=== PATIENT | male | born 1955 | race Caucasian/White ===

== ENCOUNTER 2019-03-04 13:23 | Inpatient (IN) | payer OTHER ==
[~2019-03-04] VITALS: Ht 177.8 cm; Wt 116.2 kg
[~2019-03-04 13:23] MED LIST: ALBIPROI INH; AZIT250 PO; CHLO25 PO; HYDACE5 PO; PENVK500 PO; PRED20 PO; RXLORA1 PO
[2019-03-04] MEDS ORDERED: GABA300 PO (13:43)
[2019-03-04] MEDS ORDERED: LEVSOD100 PT (13:43)
[2019-03-04] MEDS ORDERED: ESCI10 PO (13:43)
[2019-03-04] MEDS ORDERED: ALBU90OI61 INH (13:43)
[2019-03-04] MEDS ORDERED: METO25 PT (13:44)
[2019-03-04] MEDS ORDERED: LOSA50 PT (13:44)
[2019-03-04] MEDS ORDERED: Zocor20 MG PO (13:45)
[2019-03-04] MEDS ORDERED: STIOLTO RESPIMAT4 GM INH (13:45)
[2019-03-04 13:52] LABS: BASOPHILS ABSOLUTE AUTO 0.03 K/mm3 (0.00-0.23); BASOPHILS PERCENT AUTO 0 % (0-2); EOSINOPHILS ABSOLUTE AUTO 0.06 K/mm3 (0.00-0.68); EOSINOPHILS PERCENT AUTO 0 % (0-6); Hematocrit 36.4 % (37.0-53.0); Hemoglobin 11.7 g/dL (13.5-17.5); IMMATURE GRAN ABSOLUTE AUTO 0.05 K/mm3 (0.00-0.10); IMMATURE GRAN PERCENT AUTO 0 % (0-1); LYMPHOCYTES ABSOLUTE AUTO 0.88 K/mm3 (0.84-5.20); LYMPHOCYTES PERCENT AUTO 7 % (21-46); MONOCYTES ABSOLUTE AUTO 0.28 K/mm3 (0.16-1.47); MONOCYTES PERCENT AUTO 2 % (4-13); Mean Corpuscular HGB 31.4 pg (26.0-34.0); Mean Corpuscular HGB Conc 32.1 g/dL (31.5-36.5); Mean Corpuscular Volume 98 fL (80-100); Mean Platelet Volume 9.1 fL (9.1-12.4); NEUTROPHILS ABSOLUTE AUTO 12.11 K/mm3 (1.96-9.15); NEUTROPHILS PERCENT AUTO 90 % (41-73); Platelet Count 254 K/mm3 (150-400); RDW Coefficient Variation 12.8 % (11.7-14.2); RDW Standard Deviation 45.5 fL (35.1-46.3); Red Blood Cell Count 3.73 M/mm3 (4.30-5.90); White Blood Cell Count 13.41 K/mm3 (4.00-11.30)
[2019-03-04 14:12] LABS: Anion Gap 12 mmol/L (6-16); Blood Urea Nitrogen 16 mg/dL (8-24); Bun/Creatinine Ratio 13.6 (12.0-20.0); CO2, Blood 27 mmol/L (21-32); Chloride, Blood 101 mmol/L (98-108); Creatinine, Blood 1.18 mg/dL (0.60-1.20); Glomerular Filtration Rate >60 (60-); Glucose, Blood 172 mg/dL (70-99); Potassium, Blood 3.4 mmol/L (3.5-5.5); Sodium, Blood 140 mmol/L (136-145)
--- NOTE | 2019-03-04 17:17 | NUR ---
Pt. sitting up with daughter at his side. Staring to have more pain but breathing more comfortable. Pt will recieve consult from ENT and Oncology. Daughter at bedside participates in his care she is a [employer] at the [employer] in [place]. Pt is interested in getting a hospice consult so he can prepare and make an informed choice. Pt states his daughter is his POA and he has his documents in order. Pt had discussion with daughter and understands the need for a peg tube if he continues care. Plan is consults, contact [facility]. [facility] and he has seen an oncologist in [place]. plan is update care managers as he is stating he may need help and home care. Pt will be complex discharge. Updated PCU charge nurse of pt wishes and respitory need so they can update night clerk and RT. will request pt AD and records from [facility].
[2019-03-05 04:08] LABS: Hematocrit 35.6 % (37.0-53.0); Hemoglobin 11.2 g/dL (13.5-17.5); Mean Corpuscular HGB 30.9 pg (26.0-34.0); Mean Corpuscular HGB Conc 31.5 g/dL (31.5-36.5); Mean Corpuscular Volume 98 fL (80-100); Mean Platelet Volume 9.1 fL (9.1-12.4); Platelet Count 250 K/mm3 (150-400); RDW Coefficient Variation 12.8 % (11.7-14.2); RDW Standard Deviation 46.5 fL (35.1-46.3); Red Blood Cell Count 3.63 M/mm3 (4.30-5.90); White Blood Cell Count 14.59 K/mm3 (4.00-11.30)
[2019-03-05 04:30] LABS: International Normalized Ratio 1.07; Prothrombin Time Results 11.3 Sec (9.7-11.5)
[2019-03-05 04:31] LABS: Anion Gap 7 mmol/L (6-16); Blood Urea Nitrogen 19 mg/dL (8-24); Bun/Creatinine Ratio 19.4 (12.0-20.0); CO2, Blood 29 mmol/L (21-32); Calcium, Blood 8.7 mg/dL (8.5-10.1); Chloride, Blood 103 mmol/L (98-108); Creatinine, Blood 0.98 mg/dL (0.60-1.20); Glomerular Filtration Rate >60 (60-); Glucose, Blood 146 mg/dL (70-99); Potassium, Blood 4.3 mmol/L (3.5-5.5); Sodium, Blood 139 mmol/L (136-145)
--- NOTE | 2019-03-05 05:46 | NUR ---
ASSUMED CARE OF PT UPON ARRIVING TO UNIT AT APPROXIMATELY 1940. PT IS PLEASANT AND COMPLIANT W/ CARE; 4 LPM NC HUMIDIFIED; RHALES CAN BE HEARD IN LUNG BASES; HE IS CURRENTLY NPO AND MOUTH SWABS WERE PROVIDED FOR COMFORT; PT IS INDEPENDENT BASELINE AND IS SBA DUE TO GENERALIZED WEAKNESS AND FATIGUE; MORPHINE WAS USED FOR PAIN MANAGEMENT WELL REPOSITIONING THROUGH THE NIGHT AT REGULAR INTERVALS PER EMAR; CALL LIGHT WITHIN REACH, BED IN LOWEST POSITION; WILL CONTINUE TO MONITOR AND ASSESS UNTIL HANDOFF TO DAY SHIFT RN.
--- NOTE | 2019-03-05 10:39 | NUR ---
The pt states that he is unable to swallow anything, even the clear contrast which was brought to him in preparation for the ordered cT scan; he states that he cannot swallow it. Need to have hospitalist change PO meds to IV/NC as appropriate.
--- NOTE | 2019-03-05 10:51 | NUR ---
Dr. Sun was here earlier, and ordered the CT scan. Dr. Keen here at this time. Noted ordered provider consult with Dr. Dimas.
--- NOTE | 2019-03-05 11:54 | NUR ---
History, Chart, Medications and Allergies reviewed before start of procedure. Lungs clear T/O to Auscultation. Patient confirms NPO status and agrees with scheduled surgery. Pre-Op teaching done. Pt verbalizes understanding.
--- NOTE | 2019-03-05 15:33 | NUR ---
03/05/19 1533 Tiffanie Trevizo REPORT GIVEN TO ESTUARDO LUCAS IN OR2. CARE TRANSFERED TO DAY SURGERY FOR PEG TUBE PLACEMENT WITH MADDISON.
--- NOTE | 2019-03-05 15:53 | NUR ---
Telephone report was given to MARSHA Esparza, at this time. The pt will be transferred to ICU 6 following surgery.
--- NOTE | 2019-03-05 17:53 | NUR ---
1630- RECEIVED THIS PATIENT FROM OR, S/P PEG TUBE PLACEMENT AND TRACHEOSTOMY. PT IS ALERT AND ORIENTED. SOMEWHAT ANXIOUS. FOLLOWING COMMANDS. PT IS HAVING SOME COARSENESS NOTED ON BOTH LUNG VENTURA. PT IS ON AIRVO WITH 20LPM/MIN VIA TRACHEOSTOMY. TRACH SIZE 6.0. STILL WITH SERROUSANGUINOUS SECRETIONS. PT IS ON SINUS RHYTHM. PULSES ARE PALPABLE. 1800-DR. SEARS WAS NOTIFIED REGARDING PT'S PAIN MEDICATION REQUIREMENT. INFORMED HIM PT HAD HIS TRACH AND PEG TUBE PLACED. FAMILY AT BEDSIDE. PLACED A CALL TO DR. SANCHEZ WELL FOR CLARIFICATION ORDERS. ORDERS RECEIVED.
--- NOTE | 2019-03-05 18:34 | NUR ---
Met with daughter briefly today for supportive care and to review plan of care. Briefly met with patient after surgery for update on plan. Multiple family members in the room. Notified [facility] palliative care team to follow patient. [facility] He will be a difficult managment and high risk for readmission due to airway management, risk for infection and prognosis. Pt may want to try to be independent but may not be able. He is not service connected but may benefit from [facility] inpatient service. These service may not be available but due to his airway needs going to try to make a strong case. Review symptom management with ICU nurse pt high risk for complication of hypoventilation due to pain at surgical sites. Goal is to get him some feeling of control over his process and reduce his fear of a suffocating . He will need strong psycological support and spiritual care.
--- NOTE | 2019-03-06 05:56 | NUR ---
SHIFT SUMMARY: PATIENT EXPERIENCING INTERMITTENT EPISODES OF ANXIETY, REPOSITIONING, BREATHING TREATMENTS AND MORPHINE GIVEN PER MD ORDER. PATIENT REPORTS RELIEF AFTER. NO OTHER ISSUES NOTED, CALL LIGHT WITHIN REACH, BED LOW AND LOCKED.
--- NOTE | 2019-03-06 07:15 | NUR ---
RECEIVED REPORT FROM MARSHA KATZ, AND ASSUMED CARE OF PT.
--- NOTE | 2019-03-06 09:13 | NUR ---
DR. SEARS AT BEDSIDE FOR EVALUATION. OBTAINED NEW ORDERS FOR STATUS CHANGE TO PCU AND TO START FEEDINGS VIA PEG TUBE. NEW ORDERS PROVIDED.
--- NOTE | 2019-03-06 10:21 | NUR ---
CT SCAN TRANSPORT AT BEDSIDE TO TAKE PT DOWN FOR CT. SWITCHED PT FROM AIRVO TO OXYGEN TANK TO TRACH. PT ESCORTED TO CT VIA HOSPITAL BED.
--- NOTE | 2019-03-06 12:43 | NUR ---
PEG TUBE FEEDINGS STARTED PEG TUBE FEEDINGS WITH JEVITY 1.5 HC AT 25 ML/HR, GAVE WATER FLUSH OF 240 ML AND SET PUMP TO DELIVER WATER FLUSHES OF 240 ML EVERY 4 HOURS. CBG = 105. INSTRUCTED PT REGARDING FEEDINGS AND S/S TO REPORT TO NURSE. INSTRUCTED RE: NEED TO CHECK BLOOD SUGARS EVERY 6 HOURS AND PROVIDED PT WITH SCHEDULE. VERBALIZED GOOD UNDERSTANDING.
--- NOTE | 2019-03-06 13:36 | NUR ---
Pt. lying in bed and his dietitian in the room attendimng to his needs, pt. is dsoing [facility] better than yesterday encouraged pt and offered some prayers
--- NOTE | 2019-03-06 14:58 | NUR ---
REPORT GIVEN TO WALTER MONTE, COMPOUNDING TECHNICIAN, WHOM WILL ASSUME CARE OF PT UPON ARRIVAL INTO PCU ROOM 11. PT CURRENTLY BEING TRANSFERRED TO PCU 11 VIA HOSPITAL BED BY YINKA CHRISTIANSEN, AND ROSARIO, DIRECTOR.
--- NOTE | 2019-03-06 15:11 | NUR ---
pt arrived to pcu 11 via bed from icu, report was obtained from Zoraida LARSON. RT in room getting his airvo and trach situated. pt is nonverbal. will given paper and pen. call light in reach.
[2019-03-07 03:56] LABS: BASOPHILS ABSOLUTE AUTO 0.02 K/mm3 (0.00-0.23); BASOPHILS PERCENT AUTO 0 % (0-2); EOSINOPHILS PERCENT AUTO 0 % (0-6); Hematocrit 37.9 % (37.0-53.0); Hemoglobin 11.3 g/dL (13.5-17.5); IMMATURE GRAN ABSOLUTE AUTO 0.31 K/mm3 (0.00-0.10); IMMATURE GRAN PERCENT AUTO 2 % (0-1); LYMPHOCYTES ABSOLUTE AUTO 0.31 K/mm3 (0.84-5.20); LYMPHOCYTES PERCENT AUTO 2 % (21-46); MONOCYTES ABSOLUTE AUTO 0.52 K/mm3 (0.16-1.47); MONOCYTES PERCENT AUTO 3 % (4-13); Mean Corpuscular HGB 30.8 pg (26.0-34.0); Mean Corpuscular HGB Conc 29.8 g/dL (31.5-36.5); Mean Platelet Volume 9.3 fL (9.1-12.4); NEUTROPHILS ABSOLUTE AUTO 17.19 K/mm3 (1.96-9.15); NEUTROPHILS PERCENT AUTO 94 % (41-73); Platelet Count 249 K/mm3 (150-400); RDW Coefficient Variation 13.2 % (11.7-14.2); RDW Standard Deviation 50.3 fL (35.1-46.3); Red Blood Cell Count 3.67 M/mm3 (4.30-5.90); White Blood Cell Count 18.35 K/mm3 (4.00-11.30)
[2019-03-07 03:59] LABS: Mean Corpuscular Volume 103 fL (80-100)
[2019-03-07 04:07] LABS: Anion Gap 7 mmol/L (6-16); Blood Urea Nitrogen 23 mg/dL (8-24); Bun/Creatinine Ratio 24.5 (12.0-20.0); CO2, Blood 30 mmol/L (21-32); Calcium, Blood 8.5 mg/dL (8.5-10.1); Chloride, Blood 108 mmol/L (98-108); Creatinine, Blood 0.94 mg/dL (0.60-1.20); Glomerular Filtration Rate >60 (60-); Glucose, Blood 117 mg/dL (70-99); Magnesium, Blood 2.9 mg/dL (1.6-2.4); Phosphorus, Blood 3.9 mg/dL (2.5-4.9); Potassium, Blood 4.1 mmol/L (3.5-5.5); Sodium, Blood 145 mmol/L (136-145)
--- NOTE | 2019-03-07 07:22 | NUR ---
AM ASSESSMENT: Pt sitting up in bed with AIRVO to trach. Pt on 50% fio2 and 20L. LS diminished with wheezing in all lobes. HR reg/tachy at a rate in the low 100's. Peg tube with TF running that was just increased to 45cc/hr continuous. BT positive. Abd non-tender. Pulses palp. Pt states that he is having 6/10 pain in his feet, throat, and air hunger. Will medicate with morphine per orders. Pt unable to talk but communicates well with mouthing words and white board at bedside. Daughter in room. Pt denies other needs at this time. Will monitor. (shift assessment was charted under the admission assessment)
--- NOTE | 2019-03-07 08:08 | NUR ---
END OF SHIFT SUMMARY ASSUMED C ARE OF PT @1900. PT ALERT AND ORIENTED. PT NONVERBAL DUE TO NEWLY PLACED TRACH. PT EDUCATED ABOUT TRACH WELL SUCTIONING. PT STATES WITH WHITEBOARD THAT HE FEELS LIKE HE WAS DROWNING IN HIS SECRETIONS. UPON FURTHER INVESTIGATION, THIS NURSE FOUND THAT SUCTION TO INLINE CATHETER HAD BEEN PLACED INCORRECTLY LEADING TO NO SUCTION. ONCE FIXED, PT WAS ABLE TO ELIMINATE COPIOUS AMOUNTS OF YELLOW SECRETIONS. PT HAS REQUIRED ROUTINE ORAL AND INLINE TRACH SUCTIONING. PT HAS REMAINED ON AIRVOW, FIO2 50%, 20L O2. SATS HAVE REMAINED AROUND 94%. PT HAS REQUIRED Q2HR 4MG MORPHINE PER EMAR FOR HIS CHRONIC PAIN R/T CANCER AND TRACH. PT HAS BEEN VERY COOPERATIVE WITH CARE. PT HAS HAD JEVITY 1.5 INFUSING INTO PEG TUBE. GOAL RATE OF 650MLS/HR. RATE AT 25 ML/HR AT BEGINNING OF SHIFT AND HAS BEEN ADVANCED TO 35 AND THEN 45MLS/HR PER ORDERS. RESIDUAL VOLUMES AND PT REPORT HAVE INDICATED THAT PT IS TOLERATING THIS WELL. TRACH AND PEG TUBE SITES CLEANED AND NEW DRESSINGS PLACED. PT HAS CONTINUED TO HAVE NS KCL 20MEQ INFUSING AT 75MLS/HR.
--- NOTE | 2019-03-07 14:30 | NUR ---
UPDATE: Trach care done and inner cannula changed per protocal. Pt tolerated well. All suction tubing and airvo tubing was changed. Tube feeding tubing was changed and resitual was checked. Pt stated that he was feeling very full. 250 cc residual pulled, reinstilled only 50cc and will place TF on hold for about 1 hour. NO other needs at this time. WIll monitor.
--- NOTE | 2019-03-07 20:13 | NUR ---
shift Summary: Pt sitting up in bed with AIRVO to trach. PT has tolerated the airvo well this shift and has been able to maintain an oxygen saturation of about 94-95% on 20L and 50% fio2. Pt has required a large amount of in-line suction this shift (about every hour). Pt has been doing well with attempting to learn and do self care, especially with suctioning. Pt has not tolerated the tube feeding as well this shift. Was unable to increase rate and 200 cc of residual had to be discarded. Pt also requested tube feeding to be off at times because he "felt full". BP was low this am but incrased throughout the shift. No other changes this shift. WIll report to night RN.
[2019-03-08 04:30] LABS: BASOPHILS ABSOLUTE AUTO 0.02 K/mm3 (0.00-0.23); BASOPHILS PERCENT AUTO 0 % (0-2); EOSINOPHILS PERCENT AUTO 0 % (0-6); Hematocrit 36.4 % (37.0-53.0); Hemoglobin 10.8 g/dL (13.5-17.5); IMMATURE GRAN ABSOLUTE AUTO 0.13 K/mm3 (0.00-0.10); IMMATURE GRAN PERCENT AUTO 1 % (0-1); LYMPHOCYTES ABSOLUTE AUTO 0.25 K/mm3 (0.84-5.20); LYMPHOCYTES PERCENT AUTO 2 % (21-46); MONOCYTES ABSOLUTE AUTO 0.47 K/mm3 (0.16-1.47); MONOCYTES PERCENT AUTO 4 % (4-13); Mean Corpuscular HGB Conc 29.7 g/dL (31.5-36.5); Mean Corpuscular Volume 105 fL (80-100); Mean Platelet Volume 9.9 fL (9.1-12.4); NEUTROPHILS ABSOLUTE AUTO 12.67 K/mm3 (1.96-9.15); NEUTROPHILS PERCENT AUTO 94 % (41-73); Platelet Count 192 K/mm3 (150-400); RDW Coefficient Variation 13.2 % (11.7-14.2); RDW Standard Deviation 50.8 fL (35.1-46.3); Red Blood Cell Count 3.48 M/mm3 (4.30-5.90); White Blood Cell Count 13.54 K/mm3 (4.00-11.30)
[2019-03-08 04:46] LABS: Anion Gap 4 mmol/L (6-16); Blood Urea Nitrogen 21 mg/dL (8-24); Bun/Creatinine Ratio 28.4 (12.0-20.0); CO2, Blood 31 mmol/L (21-32); Calcium, Blood 8.3 mg/dL (8.5-10.1); Chloride, Blood 111 mmol/L (98-108); Creatinine, Blood 0.74 mg/dL (0.60-1.20); Glomerular Filtration Rate >60 (60-); Glucose, Blood 165 mg/dL (70-99); Magnesium, Blood 2.9 mg/dL (1.6-2.4); Phosphorus, Blood 2.7 mg/dL (2.5-4.9); Potassium, Blood 4.9 mmol/L (3.5-5.5); Sodium, Blood 146 mmol/L (136-145)
--- NOTE | 2019-03-08 07:47 | NUR ---
END OF SHIFT SUMMARY ASSUMED CARE OF PT @1900. PT ALERT AND ORIENTED, NONVERBAL R/T TRACH. PT'S BREATHING APPEARS TO BE IMPROVED FROM LAST NOC SHIFT. LUNGS WHEEAZY T/O BIATERALLY. PT HAS BEEN RECEIVING JEVITY 1.5 WITH A GOAL RATE OF 60MLS PER HOUR. THIS SHIFT, WE HAVE NOT BEEN ABLE TO INCREASE THE RATE FROM THE CURRENT RATE OF 45MLS/HR. PT STATES THAT HIS STOMACH IS TOO FULL TO INCREASE AT THIS TIME. RESIDUALS VARY FROM 0MLS TO BORDERLINE 200. ONCOMING NURSE NOTIFIED OF THISW. PT SIMENTAL CONTINUED TO RECEIVE Q2HR MORPHINE PER EMAR. BP TOLERATES WELL. PT HAS CONTINUED TO RECEIVE NS 30ML/HR AND NSKCL 20MEQ 75MLS/HR INTO POWERGLIDE. PT RECEIVED BED BATH DURING SHIFT. GOWN/BEDDING CHANGED. PT HAS REQUIRED SOME ASSISTANCE WITH ORAL/INLINE SUCTIONING BUT HAS BEEN DOING WELL WITH SELF SUCTIONING. REPORT GIVEN TO ONCOMING NURSE.
--- NOTE | 2019-03-08 08:24 | NUR ---
DAY SHIFT ASSESSMENT: PT SITTING UP IN BED AWAKE, ALERT, AND ORIENTED. PT COMMUNICATES WITH WHITE BOARD AND GESTURES. TRACH WITH TRACH COLLAR, CLOSED SYSTEM INLINE SUCTIONING, AIRVO 20L/ 51% FIO2, SITE FREE OF REDNESS. WHEEZING THROUGHOUT LUNGS, DIMINISHED SOUNDS L SIDED. CURRENTLY ON BREATHING TREATMENT WITH RT. HEART SOUNDS REGULAR, ON TELE; NSR, SINUS TACH WITH OCCASIONAL PVC. PERIPHERAL PULSES STRONG. SKIN COOL AND DRY. PEG TUBE PRESENT IN L ABDOMEN, TF INFUSING @ 45 ML/HR, SITE WNL. POWERGLIDE IN R ARM, INFUSING NS W/ 20KCL, ABX ORDERED. PT REPORTS NO DIFFICULTLY BREATHING. WILL CONTINUE TO MONITOR, CALL LIGHT IN REACH, BED IN LOWEST POSTION.
--- NOTE | 2019-03-08 18:09 | NUR ---
TUBE FEEDING INTOLERANCE: Tube feeding bag changed this a.m., residuals 0 after TF on hold for 1 hr, H2O 240 ml bolus initiated. After approx 60mls of H2O, pt began to c/o being "full" and noted reflux. H2O bolus stopped, and pt assessed. Prior to leaving room, TF resumed at 45 mls/hr for slow infusion. Pt was quickly unable to tolerate w/noted TF being suctioned orally. Meeting in room w/pt, family, and department administrator to discuss plan of care. It was clearly discussed that pt did not want to attempt alternative options for nutrition. Pt requested that TF being turned off w/option to run or bolus at a rate of which pt chooses. Pt and family stated that plan is to go on hospice/comfort care and that nutritional supplements are not of concern unless desired for comfort purposes. Message left to PMD, orders updated per pt request.
--- NOTE | 2019-03-08 18:27 | NUR ---
END OF SHIFT NOTE: NO ACUTE CHANGES IN PT THIS SHIFT. PT SITTING IN ROOM WATCHING TV. DENIES SOB/DYSPNEA. USES MEDICATIONS TO HELP WITH BREATHING. TRACH FREE OF REDNESS, REQUIRES INTERMITENT SUCTIONING, PT SUCTIONS MOUTH BY HIMSELF. TUBE FEEDINGS ON STANDBY, SEE JESSICA RN NOTE. PT WORKED WITH P.T. SEE P.T NOTES. WILL CONTINUE TO MONITOR UNTIL END OF SHIFT. CALL LIGHT IN REACH, BED IN LOWEST PORITION.
[2019-03-09 05:48] LABS: Anion Gap 4 mmol/L (6-16); Blood Urea Nitrogen 21 mg/dL (8-24); Bun/Creatinine Ratio 28.4 (12.0-20.0); CO2, Blood 31 mmol/L (21-32); Calcium, Blood 8.4 mg/dL (8.5-10.1); Chloride, Blood 109 mmol/L (98-108); Creatinine, Blood 0.74 mg/dL (0.60-1.20); Glomerular Filtration Rate >60 (60-); Glucose, Blood 125 mg/dL (70-99); Magnesium, Blood 2.6 mg/dL (1.6-2.4); Phosphorus, Blood 2.7 mg/dL (2.5-4.9); Potassium, Blood 4.9 mmol/L (3.5-5.5); Sodium, Blood 144 mmol/L (136-145)
--- NOTE | 2019-03-09 07:54 | NUR ---
END OF SHIFT SUMMARY PT EXPERIENCED NO ACUTE CHANGES THIS SHIFT. AIRVO WAS TITRATED DOWN TO 35% FIO2. SATS TOLERATE, >94%. VSS T/O SHIFT. HAS CONTINUED TO REQUIRE Q2H 4MG MORPHINE FOR PAIN R/T TRACH AND CANCER. TRACH AND PEG TUBE CARE COMPLETED. IV FLUIDS: NS 30ML/HR AND [id number] 75ML/HR INFUSING T/O ENTIRE SHIFT. POWERGLIDE CONTINUES TO INFUSE, VERY DIFFICULT TO DRAW BLOOD BUT POSSIBLE. PT'S SECRETIONS HAVE DECREASED SIGNIFICANTLY THIS SHIFT FROM LAST. TUBE FEEDINGS HAVE BEEN ON STANDBY PER PT REQUEST WE ARE INFUSING PER PT COMFORT. (SEE NOTE PLACESD BY JESSICA RN REGARDING TUBE FEEDINGS). PT HAS BEEN VERY PLEASANT THIS SHIFT. REPOSITIONING SELF IN BED. PT APPEARS TO HAVE BEEN ABLE TO SLEEP T/O MUCH OF NIGHT BUT WAKES EVERY HOUR AND A HALF R/T PAIN, MEDICATED WITH MORPHINE. CALL LIGHT WITHIN REACH OF PT, BED IN LOWEST POSITION. REPORT GIVEN TO ONCOMING NURSE.
--- NOTE | 2019-03-09 13:12 | NUR ---
Met pt. in bed and his nurse in the room attending to his needs, encouraged ptm and offered some prayers.
--- NOTE | 2019-03-09 14:39 | NUR ---
TUBE FEEDING TALKED WITH BELLA THE BLACK OFF WORKER ABOUT PT REFLUX TYPE RESPONCE TO 30ML OF TUBE FEEDING THIS MORNING. TALKED WITJH PT AND HE AGREED TO TRY PREMEDICATING WITH REGLAN FOR GI MOTILITY. FAMILY RELATED THAT PT HAS BEEN EATING A SINGLE JAR OF BABY FOOD EVERY 2 DAYS FOR MONTHS. DECIDED TO DILUTE TUBE FEEDING 50% AND INFUSE 30ML AGAIN. PT WAS AGREEABLE TO TRY. UPON SLOW HAND INFUSION OF 30ML OF 50% JEVITY 1.5 PT DID NOT REFLUX. WE ARE AT 30 MINUTES POST AND PT FEELS GOOD. NO CRAMPING OR BLOATING. CONTINUE POT.
--- NOTE | 2019-03-10 05:24 | NUR ---
SHIFT SUMMARY PT A&0 X4. PT COUGHING AND SELF SUCTIONING THICK WHITE SPUTUM. LUNG SOUNDS WHEEZY T/O. SPO2 > 92% W/ TRACH FIO2 35%. RT PROVIDING BREATHING TX'S T/O SHIFT. PT NPO. TUBE FEEDINGS ARE ORDERED PRN PER PT CHOOSING D/T PT INTOLERANCE. PT GIVEN ONE 5 ML JEVITY 1.5 DILUTED W/ 5 ML H2O PER PT REQUEST THIS SHIFT W/ PT STATEMENT OF FEELING FULL AFTER FEEDING. NS GTT INFUSING PER ORDERS. BP ELEVATED, OTHERWISE VSS. PT AWAITING [facility] EVAL IN AM. WILL CONTINUE TO MONITOR AND PROVIDE CARE UNTIL REPORT OFF TO DAY SHIFT RN.
--- NOTE | 2019-03-10 08:09 | NUR ---
Per Steve Duncan, the pt has been wearing the trache collar with non-heated blow by and tolerating this well. The oxygen delivery was changed from the heated, humidified to the non-heated, humified in order to accomodate the [facility] is [facility] to their hospice services.
--- NOTE | 2019-03-10 11:03 | NUR ---
Spiritual care visit conducted. Patient is sitting on the edge of bed and alert. Patient is warm and kind and mindful of others. Patient openly shares about her family, her L.D.S. herman and about her medical issues. Patient showed no signs of spiritual distress and states that she is full of hope and jayme. Patient is energized by telling her own story and highlighting the difficulties she has overcome. I listen empathically, provide companionship and prayer. Patient responded well and displayed evidence of an elevated mood.
--- NOTE | 2019-03-10 13:51 | NUR ---
Telephone report given to Melida nurse receiving the pt to memory care/hospice unit at the [facility].
--- NOTE | 2019-03-10 14:27 | NUR ---
The pt has been taking and responding well to IV morphine given for pain today. He reported that he has had relief of pain from 7-6/10 to 3-4/10 after the administration of medication. He has been calm, cooperative, and eager to participate in his care. He has been self-suctioning orally and at the trach opening. He has required frequent trache suctioning due to the large amount of secretions. He was encouraged by Darshana Espino to use the saline bullets to administer some into the trache and cough the secretions out when possible, to reduce some of deep suctioning to avoid trauma to the trachea and stimulation of increased secretion production. He has been cooperative in this, as well. Unfortunately he has tolerated the tube feedings only minimal amounts. This morning, his medications were administered, and a 60 cc amount of tube feeding. However, afterwards he coughed and a very small amount was then refluxed and produced from the trachestomy. Darshana was at the bedside (speech therapist) and his HOB angle was decreased slightly, to reduce the diaphragmatic pressure, which did help. However, unfortunately he leaned forward perhaps 30 minutes later and again the pressure of his abdomen pushing up induced coughing and reflux of small amount of jevity feeding from the stomach. It seems that the feedings must only be in very small amounts such as 30 cc at a time, and given apart from medications to reduce the volume in his stomach in case of coughing. He did tolerate the medication administration and PEG bolus feedings without any nausea or vomiting, or cramping. He has not had a bowel movement since last Saturday. At this time we are waiting for [facility] transportation to arrive, take him to the inpatient hospice/memory care unit.
--- NOTE | 2019-03-10 14:35 | NUR ---
Met pt lying in bed and his nurse in the room attending to his needs some family members are in the room on visit,prayed for the pt. and encouraged him.
--- NOTE | 2019-03-10 14:45 | NUR ---
The pt was taken in a wheelchair by wheelchair transport EMS van to [facility] wearing oxygen 6 l/min blow by his trache. He was given Morphine IV and reports that his pain was 3/10 before he departed.
[2019-03-10] MEDS ORDERED: CEFU500T30 PT (15:04)
[2019-03-10] MEDS ORDERED: DOXY100 PT (15:06)
[2019-03-10] MEDS ORDERED: DOCU100 PT (15:06)
[2019-03-10] MEDS ORDERED: PRED5EL PT (15:07)
[2019-03-10] MEDS ORDERED: ONDA4ODT MM (15:08)
[2019-03-10] MEDS ORDERED: MORP20L SL (15:08)
[2019-03-10] MEDS ORDERED: NICO21TP TOP (15:08)
[2019-03-10] MEDS ORDERED: ASTHMANEFRIN R1 EACH INH (15:09)
== END 2019-03-10 14:50 | disposition home or self-care (01) | DRG 4 ==
LOC: ER 13:23 → ICUE 17:11 → PCU 17:11 → ICUE 03-05 15:43 → PCU 03-06 14:55
PROVIDERS: Emergency Medicine; Internal Medicine; Nurse Practitioner Acute Care; Otolaryngology; Surgery; ADMIT Internal Medicine
PROC: 0DH63UZ Insertion of Feeding Device into Stomach, Percutaneous Approach (ICD-10-PCS; principal; 2019-03-05 12:45)
PROC: 0B110F4 Bypass Trachea to Cutaneous with Tracheostomy Device, Open Approach (ICD-10-PCS; 2019-03-05 12:45)
DX: C15.9 Malignant neoplasm of esophagus, unspecified (principal); J69.0 Pneumonitis due to inhalation of food and vomit; A41.9 Sepsis, unspecified organism; J96.01 Acute respiratory failure with hypoxia; Z51.5 Encounter for palliative care; E03.9 Hypothyroidism, unspecified; Z92.21 Personal history of antineoplastic chemotherapy; Z92.3 Personal history of irradiation; Z66 Do not resuscitate; I10 Essential (primary) hypertension; E87.6 Hypokalemia; F17.228 Nicotine dependence, chewing tobacco, with other nicotine-induced disorders; R13.10 Dysphagia, unspecified; R00.0 Tachycardia, unspecified
CPT/HCPCS: 31720; 36415; 36416; 70491; 71045; 71260; 74177; 80048; 82947; 83735; 83880; 84100; 84484; 85025; 85027; 85610; 87070; 87205; 92507; 92597-GN; 93005; 93010; 94640; 94667; 94760; 94762; 96365-59; 96366-59; 96375-59; 97110; 97162; 97166; 97530; 99285-25; C1769; C9113; J0696; J2060; J2250; J2270; J2405; J2704; J2765; J2930; J3010; J3480; J7030; J7120; Q9967